=== PATIENT | male | born 1990 | race Caucasian/White ===

== ENCOUNTER → 2017-08-28 16:35 | Outpatient (CLI) | payer OTHER, SELFPAY ==
--- NOTE | 2017-08-28 16:35 | DT_ITS ---
This patient was seen during an EMR downtime August 24, 2017 - August 31, 2017. This patient may have a combination of paper and electronic documentation or all paper documentation. All documentation is viewable within the e-chart portion of [facility] for each patient visit.
[2017-09-01 17:05] LABS: BUN 19 mg/dL (7-18); Glucose 73 mg/dL (74-106)
[2017-09-01 17:06] LABS: Anion Gap 13 (5-15); BUN/Creat Ratio 17.3 RATIO (10-20); Calcium,Total 9.4 mg/dL (8.5-10.1); Chloride 101 mmol/L (98-107); Cholesterol 156 mg/dL (200); EST Glomerular Filtration Rate 87 mL/min (>60); Est Glom Filt Rate - Afr Amer 105 mL/min (>60); High Density Lipoprotein 47 mg/dL; Sodium Level 139 mmol/L (136-145); Thyroid Stim Hormone (TSH) 0.71 uIU/mL (0.358-3.74); Triglycerides 39 mg/dL; Very Low Density Lipoprotein 8 mg/dL (5-40)
== END ==
PROVIDERS: Visit Provider Family Medicine
DX: I10 Essential (primary) hypertension (principal); F41.9 Anxiety disorder, unspecified
CPT/HCPCS: 36415; 80048; 80061; 84443

== ENCOUNTER → 2018-02-01 16:28 | Outpatient (CLI) | payer OTHER, BC, SELFPAY ==
[2018-02-01 18:09] LABS: Anion Gap 8 (5-15); BUN 15 mg/dL (7-18); BUN/Creat Ratio 13.2 RATIO (10-20); Calcium,Total 8.8 mg/dL (8.5-10.1); Chloride 103 mmol/L (98-107); Creatinine, Serum 1.14 mg/dL (0.70-1.30); EST Glomerular Filtration Rate 83 mL/min (>60); Est Glom Filt Rate - Afr Amer 100 mL/min (>60); Glucose 88 mg/dL (74-106); Potassium 4.1 mmol/L (3.5-5.1); Sodium Level 141 mmol/L (136-145)
== END ==
PROVIDERS: Visit Provider Family Medicine
DX: I10 Essential (primary) hypertension (principal)
CPT/HCPCS: 36415; 80048

== ENCOUNTER → 2018-08-05 13:49 | Outpatient (CLI) | payer OTHER, SELFPAY ==
[2018-08-05 15:00] LABS: Anion Gap 7 (5-15); BUN 15 mg/dL (7-18); BUN/Creat Ratio 15.8 RATIO (10-20); Calcium,Total 8.7 mg/dL (8.5-10.1); Chloride 108 mmol/L (98-107); Creatinine, Serum 0.95 mg/dL (0.70-1.30); EST Glomerular Filtration Rate 102 mL/min (>60); Est Glom Filt Rate - Afr Amer 123 mL/min (>60); Glucose 97 mg/dL (74-106); Potassium 4.1 mmol/L (3.5-5.1); Sodium Level 142 mmol/L (136-145)
== END ==
PROVIDERS: Family Provider Family Medicine; PCP Family Medicine; Referring Provider Family Medicine; Visit Provider Family Medicine
DX: I10 Essential (primary) hypertension (principal)
CPT/HCPCS: 36415; 80048

== ENCOUNTER → 2019-07-28 08:15 | Outpatient (CLI) | payer OTHER, SELFPAY ==
[2019-07-28 11:09] LABS: Anion Gap 4 (5-15); BUN 16 mg/dL (7-18); BUN/Creat Ratio 14.7 RATIO (10-20); Chloride 103 mmol/L (98-107); Cholesterol 161 mg/dL (200); Creatinine, Serum 1.09 mg/dL (0.70-1.30); EST Glomerular Filtration Rate 86 mL/min (>60); Est Glom Filt Rate - Afr Amer 104 mL/min (>60); Glucose 90 mg/dL (74-106); High Density Lipoprotein 34 mg/dL; Potassium 4.1 mmol/L (3.5-5.1); Sodium Level 138 mmol/L (136-145); Triglycerides 83 mg/dL; Very Low Density Lipoprotein 17 mg/dL (5-40)
== END ==
PROVIDERS: PCP Family Medicine; Visit Provider Family Medicine
DX: I10 Essential (primary) hypertension (principal)
CPT/HCPCS: 36415; 80048; 80061

== ENCOUNTER → 2020-04-12 10:13 | Outpatient (CLI) | payer OTHER, SELFPAY ==
[2014-02-16 11:34] VITALS: BMI 24.3
[2020-04-12 12:49] LABS: Anion Gap 5 (5-15); BUN 18 mg/dL (7-18); BUN/Creat Ratio 17.6 RATIO (10-20); Chloride 106 mmol/L (98-107); Cholesterol 171 mg/dL (200); Creatinine, Serum 1.02 mg/dL (0.70-1.30); EST Glomerular Filtration Rate 92 mL/min (>60); Est Glom Filt Rate - Afr Amer 112 mL/min (>60); Glucose 84 mg/dL (74-106); High Density Lipoprotein 42 mg/dL; Potassium 4.1 mmol/L (3.5-5.1); Sodium Level 137 mmol/L (136-145); Triglycerides 67 mg/dL; Very Low Density Lipoprotein 13 mg/dL (5-40)
== END ==
PROVIDERS: PCP Family Medicine; Referring Provider Family Medicine; Visit Provider Family Medicine
DX: I10 Essential (primary) hypertension (principal)
CPT/HCPCS: 36415; 80048; 80061

== ENCOUNTER → 2021-01-21 08:50 | Outpatient (CLI) | payer OTHER, SELFPAY ==
[2021-01-21 10:46] LABS: Anion Gap 5 (5-15); BUN 12 mg/dL (7-18); Chloride 104 mmol/L (98-107); Cholesterol 173 mg/dL (200); Creatinine, Serum 1.09 mg/dL (0.70-1.30); EST Glomerular Filtration Rate 85 mL/min (>60); Est Glom Filt Rate - Afr Amer 103 mL/min (>60); Glucose 93 mg/dL (74-106); High Density Lipoprotein 44 mg/dL; Potassium 4.1 mmol/L (3.5-5.1); Sodium Level 137 mmol/L (136-145); Triglycerides 61 mg/dL; Very Low Density Lipoprotein 12 mg/dL (5-40)
== END ==
PROVIDERS: PCP Family Medicine; Visit Provider Family Medicine
DX: I10 Essential (primary) hypertension (principal)
CPT/HCPCS: 36415; 80048; 80061

== ENCOUNTER 2021-07-05 14:21 | Outpatient (CLI) | payer OTHER, SELFPAY ==
--- NOTE | 2021-07-05 14:24 | RAD_ITS ---
STUDY: XR Knee Complete 4 Views or More 07/05/2021 5:05 PM REASON FOR EXAM: Male, 31 years old. PAIN TECHNIQUE: XR Knee Complete 4 Views or More LEFT COMPARISON: None FINDINGS: Normal visualized distal femur. Normal visualized proximal tibia and fibula. Normal proximal tibiofibular articulation. Normal medial femorotibial compartment. Normal lateral femorotibial compartment. There are small loose bodies in the patellofemoral articulation. This may suggest small fracture fragments. However the donor site is difficult to discern. The soft tissue structures are unremarkable. RAD/Knee 4 or More Views IMPRESSION: There are small loose bodies in the patellofemoral articulation. This may suggest small fracture fragments. However the donor site is difficult to discern. Electronically Signed: Eliud Hutchison MD at 17:07 EDT ,
== END 2021-07-05 23:59 | disposition home or self-care (01) ==
LOC: MTRAD 14:23
PROVIDERS: PCP Family Medicine; Referring Provider Family Medicine; Visit Provider Family Medicine
DX: S89.92XA Unspecified injury of left lower leg, initial encounter (principal); X58.XXXA Exposure to other specified factors, initial encounter; M23.42 Loose body in knee, left knee
CPT/HCPCS: 73564

== ENCOUNTER → 2023-02-20 | Outpatient (CLI) | payer OTHER, SELFPAY ==
[2023-02-25 08:12] LABS: Hepatitis B Core Ab Total Negative (Negative); QNTFERON TB Mitogen Value > 10.00 IU/mL (.); QNTFERON TB Nil Value 0 IU/mL (.); QNTFERON TB1+ Ag Value 0 IU/mL (.); QNTFERON TB2+ Ag Value 0 IU/mL (.); QNTIFERON TB Positive Criteria Negative (Negative)
== END | disposition home or self-care (01) ==
PROVIDERS: PCP Student in an Organized Health Care Education/Training Program; Referring Provider Physician Assistant Medical; Visit Provider Physician Assistant Medical
DX: L40.0 Psoriasis vulgaris (principal); Z79.899 Other long term (current) drug therapy
CPT/HCPCS: 36415; 86480; 86704

== ENCOUNTER → 2023-07-28 | Outpatient (CLI) | payer OTHER, SELFPAY | END | disposition home or self-care (01) | LOC: SL 13:22 | PROVIDERS: PCP Student in an Organized Health Care Education/Training Program; Referring Provider Student in an Organized Health Care Education/Training Program; Visit Provider Student in an Organized Health Care Education/Training Program | DX: G47.10 Hypersomnia, unspecified (principal) | CPT/HCPCS: 95806 ==

== ENCOUNTER → 2023-08-24 | Outpatient (CLI) | payer OTHER, SELFPAY ==
--- NOTE | 2023-08-24 18:26 | STRESSREP ---
Stress Test Report Exercise stress test. 53-year-old male with a history of chest pain Stress protocol: Resting EKG demonstrates normal sinus rhythm with a rate of 72 bpm resting blood pressure is 144/82 mmHg. The patient exercised according to the regular [facility] protocol for a total duration of 12 minutes attaining a maximum heart rate of 171 bpm which was 90% of maximum predicted heart rate; the maximum workload was 13.7 metabolic equivalents. At rest there were no ST or T wave changes noted to suggest ischemia and at peak exercise upsloping ST changes only were noted which did not meet the criteria for ischemia. No clinical angina was noted the test was terminated due to the target heart rate being achieved/fatigue. The peak blood pressure was 208/90 mmHg. Rate-pressure product was 31,700. Conclusion: Exercise stress test with no EKG criteria for ischemia at a high workload.
== END | disposition home or self-care (01) ==
LOC: CVS 11:34
PROVIDERS: PCP Student in an Organized Health Care Education/Training Program; Referring Provider Student in an Organized Health Care Education/Training Program; Visit Provider Student in an Organized Health Care Education/Training Program
DX: R06.09 Other forms of dyspnea (principal); I10 Essential (primary) hypertension
CPT/HCPCS: 93017

== ENCOUNTER → 2023-09-02 | Outpatient (CLI) | payer OTHER, SELFPAY | END | disposition home or self-care (01) | PROVIDERS: PCP Student in an Organized Health Care Education/Training Program | DX: G47.33 Obstructive sleep apnea (adult) (pediatric) (principal); G47.31 Primary central sleep apnea | CPT/HCPCS: 95811 ==

== ENCOUNTER → 2023-09-11 | Outpatient (CLI) | payer OTHER, SELFPAY | END | disposition home or self-care (01) | LOC: SL 08:49 | PROVIDERS: PCP Student in an Organized Health Care Education/Training Program; Visit Provider Nurse Practitioner Family | DX: Z00.00 Encounter for general adult medical examination without abnormal findings (principal) ==

== ENCOUNTER → 2023-11-26 | Outpatient (CLI) | payer OTHER, SELFPAY ==
--- NOTE | 2023-11-26 07:49 | ECHOD_ITS ---
Version 2 Reason For Study: Palpitations Procedure This was a 2D Doppler, Color Flow transthoracic echocardiogram. Exam performed in department. Left Ventricle Normal LV size. Left ventricular systolic function is normal. The left ventricular ejection fraction is 55 %. No regional wall motion abnormalities noted. Right Ventricle Normal RV size. Normal systolic function. Atria Normal left atrium. Normal right atrium. Mitral Valve Mild mitral valve prolapse. Tricuspid Valve Normal tricuspid valve. Mild (1+) tricuspid valve insufficiency. Pulmonary artery systolic pressure is 14 mmHg. Aortic Valve Trisinus/trileaflet aortic valve. Pulmonic Valve Normal pulmonic valve. Great Vessels Normal aortic root. The pulmonary artery is normal size. Normal inferior vena cava. Pericardium/Pleural No pericardial effusion. MMode/2D Measurements & Calculations LVIDd: 5.6 cm IVSd: 0.87 cm Ao root diam: 3.4 cm LVIDs: 3.7 cm LVPWd: 0.87 cm LA dimension: 3.7 cm RVDd: 3.7 cm FS: 32.7 % LAV(MOD-bp): 50.2 ml LVAd ap4: 36.7 cm2 SV(MOD-sp4): 69.3 ml LAV(MOD-bp) Indexed: 24.1 ml/m2 LVLd ap4: 8.9 cm LAV(MOD-sp2): 52.0 ml EDV(MOD-sp4): 123.3 ml LAV(MOD-sp4): 47.9 ml EDV(sp4-el): 129.3 ml LVAs ap4: 22.3 cm2 LVLs ap4: 7.7 cm ESV(MOD-sp4): 53.9 ml ESV(sp4-el): 54.7 ml EF(MOD-sp4): 56.3 % EF(sp4-el): 57.7 % SV(sp4-el): 74.6 ml LA A4 area: 17.3 cm2 RA A4 area: 16.4 cm2 TAPSE: 1.8 cm Time Measurements MV dec time: 0.29 sec Doppler Measurements & Calculations MV E max randolph: 82.9 cm/sec Lat Peak E' Randolph: 23.0 cm/sec Med Peak E' Randolph: 13.1 cm/sec MV A max randolph: 51.7 cm/sec E/E' lat: 3.6 E/E' med: 6.3 MV E/A: 1.6 MV V2 max: 84.2 cm/sec MV P1/2t max randolph: 84.2 cm/sec Ao V2 max: 121.0 cm/sec MV max P.8 mmHg MV P1/2t: 83.2 msec Ao max P.9 mmHg MV V2 mean: 42.5 cm/sec MV dec slope: 296.3 cm/sec2 Ao V2 mean: 84.6 cm/sec MV mean P.89 mmHg Ao mean P.3 mmHg MV V2 VTI: 26.2 cm MVA(P1/2t): 2.6 cm2 Ao V2 VTI: 26.7 cm AV (velocity ratio): 0.83 LV V1 max: 104.1 cm/sec PA V2 max: 109.8 cm/sec TR max randolph: 165.1 cm/sec LV V1 max P.3 mmHg PA max PG (full): 2.6 mmHg TR max P.9 mmHg LV V1 mean P.4 mmHg PA V2 mean: 75.6 cm/sec LV V1 mean: 72.5 cm/sec PA mean PG (full): 1.5 mmHg LV V1 VTI: 22.2 cm ECHO/Echo Complete Interpretation Summary Normal LV size. Left ventricular systolic function is normal. The left ventricular ejection fraction is 55 %. Mild mitral valve prolapse. Ordering Physician: Herman Poe Referring Physician: Herman Poe Performed By: Abundio Acuña RCS
== END | disposition home or self-care (01) ==
LOC: CVS 07:49
PROVIDERS: PCP Student in an Organized Health Care Education/Training Program; Referring Provider Student in an Organized Health Care Education/Training Program; Visit Provider Student in an Organized Health Care Education/Training Program
DX: R00.2 Palpitations (principal)
CPT/HCPCS: 93306

== ENCOUNTER → 2024-12-26 | Outpatient (CLI) | payer OTHER, SELFPAY ==
--- NOTE | 2024-12-26 13:53 | RAD_ITS ---
PROCEDURE: KNEE 4 OR MORE VIEWS 12/26/2024 REASON FOR EXAM: KNEE PAIN TECHNIQUE: Procedure Code: RADKN Modality: DX Procedure: KNEE 5 VIEWS Laterality: Right COMPARISON: None. RAD/Knee 4 or More Views IMPRESSION: Minimal right knee degenerative changes are seen of the patellofemoral and medi al compartments. No joint narrowing is noted. Questionable very small right knee joint effusion. No fracture, dislocation, or other significant osseous or joint space abnormali ty is seen. Reading Location: [place] [id number]
== END | disposition home or self-care (01) ==
LOC: MTRAD 13:53
PROVIDERS: PCP Student in an Organized Health Care Education/Training Program; Referring Provider Orthopaedic Surgery Sports Medicine; Visit Provider Orthopaedic Surgery Sports Medicine
DX: M25.561 Pain in right knee (principal)
CPT/HCPCS: 73564

== ENCOUNTER → 2024-12-26 | Outpatient (CLI) | payer OTHER, SELFPAY ==
--- NOTE | 2024-12-26 15:11 | RAD_ITS ---
PROCEDURE: ORBITS FOR FOREIGN BODY 12/26/2024 REASON FOR EXAM: RULE OUT FOREIGN BODY - [employer] PLANNING MRI TECHNIQUE: Procedure Code: [id number]. Modality: DX Procedure: ORBITS FOR FOREIGN BODY, two views COMPARISON: None. RAD/Orbits for Foreign Body IMPRESSION: No intraorbital metal is seen. Visualized paranasal sinuses and mastoid air cells appear clear. No acute osseous change is noted. Reading Location: [place] [id number]
== END | disposition home or self-care (01) ==
LOC: MTRAD 15:11
PROVIDERS: PCP Student in an Organized Health Care Education/Training Program; Visit Provider Orthopaedic Surgery Sports Medicine
DX: M25.561 Pain in right knee (principal)
CPT/HCPCS: 70030

== ENCOUNTER → 2024-12-29 | Outpatient (CLI) | payer OTHER, SELFPAY ==
--- NOTE | 2024-12-29 09:09 | MRI_ITS ---
PROCEDURE: LOWER EXT JOINT ONLY (ROUTINE) 12/29/2024 REASON FOR EXAM: TWISTING INJURY, ? MENISCUS TECHNIQUE: Procedure Code: [id number] Modality: MR Procedure: MRI of the right knee without contrast. Multiplanar and multisequence images were obtained without IV contrast administration. COMPARISON: COMPARISON : Right knee series of 12/26/2024. FINDINGS: A Probable nondisplaced osteochondral Fracture seen of the anterior medial aspect of the lateral femoral condyle. Adjacent areas of bone marrow edema are seen, as well. Mild edema is seen of the lateral tibial plateau, most probably due to bone bruising. No significant joint effusion is seen. No Guerrero's or popliteal cyst is noted. No meniscal tear is seen. Cruciate and collateral ligaments appear intact. Visualized extensor tendons appear intact. Minimal tricompartmental degenerative changes are seen. MRI/Lower Ext Joint Only (Routine) IMPRESSION: 1. Probable nondisplaced osteochondral fracture of the anteromedial aspect of t he lateral femoral condyle, with subjacent bone marrow edema. 2. Additional findings as noted. Reading Location: [place] [id number]
== END | disposition home or self-care (01) ==
LOC: MRI 09:04
PROVIDERS: PCP Student in an Organized Health Care Education/Training Program; Referring Provider Orthopaedic Surgery Sports Medicine; Visit Provider Orthopaedic Surgery Sports Medicine
DX: M23.8X1 Other internal derangements of right knee (principal); X50.1XXA Overexertion from prolonged static or awkward postures, initial encounter
CPT/HCPCS: 73721